=== PATIENT | female | born 1950 | race Caucasian/White ===

== ENCOUNTER 2019-07-07 06:36 | Day surgery (SDC) | payer MEDICARE, BC ==
[2019-07-07] MEDS ORDERED: Sodium Chloride 0.9% 10 ML Syringe FLUSH PRN (07:00)
[2019-07-07] MEDS ORDERED: Lactated Ringers 1,000 ML IV SCH (07:00)
[2019-07-07] MEDS ORDERED: Propofol 200 MG/20 ML SDV ONE (07:51)
[2019-07-07] MEDS ORDERED: fentaNYL 100 MCG/2 ML SDV ONE (07:51)
--- NOTE | 2019-07-07 12:18 | OR ---
PREOPERATIVE DIAGNOSES: 1. Personal history of polyps. 2. Family history of colon cancer, father at age 60. POSTOPERATIVE DIAGNOSES: 1. Personal history of polyps. 2. Family history of colon cancer, father at age 60. ANESTHESIA: MAC anesthesia. COMPLICATIONS: None. BLOOD LOSS: Minimal, FINDINGS: 1. Ascending colon polyps, 3 mm, 2 mm, cold snare. 2. Hepatic flexure polyp, 1 mm, cold forceps. START TIME: 0800. CECUM TIME: 0806. START TIME: 0817, BOWEL PREP: [place] class II. DETAIL OF PROCEDURE: Informed consent was obtained, and the patient was brought to the procedure room, placed in the left lateral decubitus position. MAC anesthesia was induced by Anesthesia colleagues. The endoscope using Endocuff device was introduced into the anal canal and advanced all the way to the cecum. The appendiceal orifice and IC valve were photographed. The endoscope was then slowly withdrawn. No pathology was identified except for what is mentioned above in the finding section. A retroflexed view was performed at the rectum and was unremarkable. The rectum was desufflated and the endoscope was removed. Patient tolerated procedure well, was awoken from MAC anesthesia by Anesthesia colleagues without incident. PATHOLOGY: A) Cecum and proximal ascending polyps Tubular adenomas B) Hepatic flexure polyp Tubular adenoma RECOMMENDATIONS: Repeat colonoscopy 3 years. RKM: 07/07/2019 08:22:40 MODL: 07/07/2019 12:12:58 /[id number] LAKESHA
--- NOTE | 2019-07-19 11:08 | LETTER ---
07/14/2019 Chaya Nuñez [address] [place] [phone] Dear Coleman Nuñez: I am writing to inform you of your pathology results from your recent colonoscopy. You had several polyps called tubular adenomas. These are considered precancerous, but do not contain cancer. We removed them before they can become cancer. You will need another colonoscopy in 3 years. Warmest regards,
== END 2019-07-07 09:30 | disposition home or self-care (01) ==
LOC: VM.SDS 06:36
PROVIDERS: ATTEND Student in an Organized Health Care Education/Training Program
DX: Z12.11 Encounter for screening for malignant neoplasm of colon (principal); D12.0 Benign neoplasm of cecum; D12.2 Benign neoplasm of ascending colon; D12.3 Benign neoplasm of transverse colon; I10 Essential (primary) hypertension; E55.9 Vitamin D deficiency, unspecified; E66.9 Obesity, unspecified; Z80.0 Family history of malignant neoplasm of digestive organs; Z86.010 Personal history of colon polyps; Z79.899 Other long term (current) drug therapy; Z79.82 Long term (current) use of aspirin; Z68.33 Body mass index [BMI] 33.0-33.9, adult
CPT/HCPCS: 45380; 45385; J2704; J3010; J7120; 88305

== ENCOUNTER 2023-09-11 07:30 | Day surgery (SDC) | payer MEDICARE, BC ==
[2023-09-11] MEDS: Lactated Ringers 1,000 ML IV SCH (07:51)
[2023-09-11] MEDS ORDERED: Propofol 200 MG/20 ML SDV ONE ×2 (08:47→08:48)
[2023-09-11] MEDS ORDERED: fentaNYL 100 MCG/2 ML SDV ONE (08:48)
== END 2023-09-11 10:02 | disposition home or self-care (01) ==
LOC: VM.SDS 07:30
PROVIDERS: ATTEND Family Medicine
DX: Z12.11 Encounter for screening for malignant neoplasm of colon (principal); D12.0 Benign neoplasm of cecum; D12.6 Benign neoplasm of colon, unspecified; K63.5 Polyp of colon; K57.30 Diverticulosis of large intestine without perforation or abscess without bleeding; Z86.010 Personal history of colon polyps; Z80.0 Family history of malignant neoplasm of digestive organs; I10 Essential (primary) hypertension; E78.00 Pure hypercholesterolemia, unspecified; E66.9 Obesity, unspecified; E55.9 Vitamin D deficiency, unspecified; Z79.82 Long term (current) use of aspirin; Z79.899 Other long term (current) drug therapy; Z88.8 Allergy status to other drugs, medicaments and biological substances
CPT/HCPCS: 00811; 88305; 99100; J2704; J3010; J3490; J7120